=== PATIENT | female | born 1990 | race Caucasian/White ===

== ENCOUNTER 2021-11-20 11:28 | Outpatient (CLI) | payer OTHER, SELFPAY ==
[2021-11-20 12:03] LABS: Basophils Absolute Auto 0.1 K/mm3 (0.0-0.1); Basophils Percent Auto 1.2 % (0.2-1.2); Eosinophils Absolute Auto 0.1 K/mm3 (0-0.3); Eosinophils Percent Auto 1.5 % (0-4.4); Hematocrit 46.8 % (37.0-47.0); Hemoglobin 15.4 g/dL (12.0-15.0); Immature Granulocyte Absolute 0.03 K/mm3 (0.00-0.031); Immature Granulocyte Percent A 0.4 % (0-0.5); Immature Platelet Fraction Pct 20.9 % (0.9-11.2); Lymphocytes Absolute Auto 2.08 K/mm3 (0.9-3.2); Mean Corpuscular HGB Conc 32.9 g/dl (32-36); Mean Corpuscular Hemoglobin 31.2 pg (26-34); Mean Corpuscular Volume 94.9 fl (80-100); Mean Platelet Volume 13.4 fl (7.4-10.4); Monocytes Absolute Auto 0.5 K/mm3 (0.1-0.6); Monocytes Percent Auto 7.3 % (2.6-8.5); Neutrophils Absolute Auto 4.6 K/mm3 (1.3-6.7); Neutrophils Percent Auto 61.6 % (45.5-73.1); Platelet Count Result 151 k/mm3 (150-375); Red Blood Count 4.93 M/mm3 (4.2-5.4); Red Cell Distribution Width 13.3 % (11.5-14.5); White Blood Count 7.4 K/mm3 (4.5-10.0)
== END 2021-11-20 11:29 | disposition home or self-care (01) ==
PROVIDERS: Visit Provider Obstetrics & Gynecology
DX: N81.4 Uterovaginal prolapse, unspecified (principal); Z01.818 Encounter for other preprocedural examination
CPT/HCPCS: 36415; 85025; 85055; 86850; 86900; 86901

== ENCOUNTER 2021-11-27 00:43 | Day surgery (SDC) | payer OTHER, SELFPAY ==
[2021-11-19 13:01] VITALS: BMI 27.4
--- NOTE | 2021-11-19 13:15 | PC.NURSE ---
Report to the Outpatient Waiting Room, entrance under the green pavilion located off [facility], at time 12:00 on date 11/27/21. OR Time: 2:00. - You and your visitor will be asked a series of questions to screen for COVID 19 for your protection. - Only one visitor is allowed at this time. - The patient visitor is requested to leave or wait in car when not with patient. - A mask is required within the hospital. Patients may have clear liquids (water, carbonated beverages, clear teas, apple juice) until 3 hours prior to surgery (11:00) with a maximum of 20 ounces. - No food from midnight until time of surgery Take the following medications with a SIP of water the morning of surgery: N/A Medications to discontinue per physician: N/A Date to take last dose: N/A Please no make-up, nail fijian, hairspray, perfume, deodorant, or body powder the day of surgery. No jewelry (including any body piercings) or valuables the day of surgery, leave them at home. Please take a shower or bath the night before, or the morning of, surgery with an antibacterial soap. Wear comfortable, loose fitting clothing. - Jewelry must be removed prior to entering the operating room. Rings and piercings that are not removed may be cut off. - The hospital will not accept responsibility for valuables. - Please leave all valuables, including medications, at home the day of surgery. If you are going home after surgery, a licensed tanker truck driver must drive you home. - NO public transportation without another adult. - We recommend that an adult stay with you for 24 hours following discharge. - We also recommend that you do not drive, make important decision, drink alcoholic beverages, or take any drugs that were not prescribed by your health care provider for at least 24 hours after your discharge time. Follow any additional instructions given to you from your surgeon. If you or anyone in your household have experienced Covid symptoms in the past week, please notify your surgeon or the nurse liaison at the phone number below for possible testing. Telephone instructions given to PT - TIFFANIE DESAI and asked if any additional questions and then verbalized understanding. Patient advised to call surgeon office or pre surgery nurse liaison [phone] if any additional questions.
--- NOTE | 2021-11-24 17:28 | P.HP_ITS ---
H&P: HPI History of Present Illness Date/Time: 11/24/21 17:28 Chief Complaint: Pelvic pain/dyspareunia/prolapse Narrative: 31-year-old admitted for robotic total vaginal hysterectomy and bilateral salpingectomy secondary to pelvic pain and dyspareunia. She has a 2nd to third- degree prolapse as well risks and benefits reviewed including not exclusive of , aspiration pneumonia, bleeding, transfusion, perforation injury to bowel, bladder, ureters, or other internal organs with need for open laparotomy. She received the [employer]CO[employer] handout entitled hysterectomy as well as the de [place]un handout. She had all questions answered and asked to proceed PMFSH Past Medical History Medical History PIH ( induced hypertension) Family History Family History Father Hypertension Diabetes mellitus Mother Clotting disorder Social History Social History Smoking packs per day: 1 Smoking cigarettes per day: 20.0 Years smoked: 17 Smoking pack-years: 17.00 Smoking status: Current every day smoker Tobacco type: cigarettes Second hand tobacco smoke exposure: No Alcohol intake: never Substance use: never Substance use type: does not use Additional living arrangements comments: CHILDREN Gender identity (if verbalized by the patient): Female Spiritual care concerns: No Meds Home Medications and Allergies Home Medications Medication Instructions Recorded Confirmed Type No Home Medications 11/19/21 11/19/21 History Allergies Allergy/AdvReac Type Severity Reaction Status Date / Time No Known Allergies Allergy Unknown Verified 11/19/21 13:00 Exam Const: General: cooperative and healthy appearing HENMT: Head: normal to inspection Chest: Chest palpation & inspection: normal inspection of the chest Resp: Effort & Inspection: normal respiratory effort Cardio: Rate: regular rate Rhythm: regular rhythm GI: Inspection: normal to inspection : Speculum Exam - Cervix: normal appearance of the cervix and Cervical os closed Bimanual exam- vagina & uterus: enlarged Bimanual Exam- Adnexa, other: normal adnexae Assessment and Plan Assessment and plan (1) Pelvic pain: Code(s): R10.2 - Pelvic and perineal pain Status: Acute (2) Uterine prolapse: Code(s): N81.4 - Uterovaginal prolapse, unspecified Status: Acute (3) Dyspareunia: Status: Acute Plan Robotic total vaginal hysterectomy and bilateral salpingectomy
--- NOTE | 2021-11-26 10:56 | WPDANESEPPF ---
Anes - Initial Pre Proc Eval Procedure: Operation Date: 11/27/21 14:00 Proposed Procedures p Robotic Assisted Total Vaginal Hysterectomy with Bilateral Salpingectomy - Doug Abreu MD Date/Time: 11/26/21 10:56 Surgeon: Doug Abreu MD Pre Op Diagnosis: 2nd-3rd degree uterine prolapse, dyspareunia Patient Data Age: 31 Gender: F Height: 1.57 m Weight: 68.04 kg Allergies Allergy/AdvReac Type Severity Reaction Status Date / Time No Known Allergies Allergy Unknown Verified 11/27/21 11:56 Home Medications Medication Instructions Recorded Confirmed Type hydrocodone 5 mg-acetaminophen 325 1 tablet PO Q4H PRN pain #30 tabs 11/27/21 Rx mg tablet Patient hx anesthesia problems: none Family hx anesthesia problems: none Results Review: All pre-operative results and documents have been reviewed as part of the pre-operative evaluation. [facility]LY [facility] Past Medical History Medical History (Updated 11/26/21 @ 10:56 by Reynaldo Baig MD) Pelvic pain PIH ( induced hypertension) Uterine prolapse Family History Family History Father Hypertension Diabetes mellitus Mother Clotting disorder Social History Social History Smoking packs per day: 1 Smoking cigarettes per day: 20.0 Years smoked: 17 Smoking pack-years: 17.00 Smoking status: Current every day smoker Tobacco type: cigarettes Second hand tobacco smoke exposure: No Alcohol intake: never Substance use: never Substance use type: does not use Living arrangements: with family Additional living arrangements comments: CHILDREN Gender identity (if verbalized by the patient): Female Spiritual care concerns: No Anes - Eval Final PreProcedure Day of Procedure 11/26/21 10:56 Patient weight: overweight Heart: regular rate and rhythm Lungs: clear to auscultation and normal air movement Airway: Mallampati scale class II Neurological: alert and oriented Last oral intake: >/= 8 hours ASA classification: II Emergent: no Anesthetic plan: proceed Anesthesia type and monitoring: general ETT Results Review: All pre-operative results and documents have been reviewed as part of the pre-operative evaluation. Informed Consent: The patient's anesthetic plan and its attendant risks and benefits were discussed with the patient/family/POA. Questions were solicited and answers provided to the satisfaction of the patient/family/POA.
[2021-11-27] VITALS (8 sets, daily range): BP systolic 103–128; BP diastolic 45–90; PULSE 39–77; RESP 14–18; TEMP 36.4–36.7; O2SAT 96–100
--- NOTE | 2021-11-27 07:27 | WPDHPUPDATE1 ---
History and Physical Update Update Date/Time: 11/27/21 07:27 History and Physical has been reviewed, including an updated exam of the patient. There are NO changes in the patient's condition. Risks, benefits, and alternatives have been discussed and questions answered. Patient agrees to proceed with procedure.
[2021-11-27] MEDS: ACETAMINOPHEN 500 MG TABLET 1000 MG PO (12:46)
[2021-11-27] MEDS: LACTATED RINGERS 1,000 ML 30 ML IV CONT ×2 (12:46→15:46)
[2021-11-27] MEDS: KETOROLAC 15 MG/ML VIAL (*BKC) IV PUSH (12:49)
[2021-11-27] MEDS: ceFAZolin 2 GM/D5W 50 ML 2 GM/50 ML BAG IVPB (14:10)
--- NOTE | 2021-11-27 15:15 | W.PM.PROC2 ---
Procedure Note - Detailed Date of Procedure 11/27/21 Pre-op Diagnosis 2nd-3rd degree uterine prolapse, dyspareunia Post-op Diagnosis Same Procedure Performed Robotic total vaginal hysterectomy and bilateral salpingectomy Surgeon Doug Abreu MD Anesthesia General Indications Since 31-year-old female with uterine prolapse pelvic pain Findings 2nd to third-degree prolapse. Normal-appearing ovaries and tubes. Description of Procedure The patient is prepped and draped in the normal sterile fashion placed in the dorsal lithotomy position. Under excellent general trach anesthesia weighted speculum placed in posterior fornix vagina. Anterior lip of the cervix grasped with a single-tooth tenaculum. Uterus sounded to 10cm. Serial dilatation with fragmented dilators performed followed by passes the 8. LIVIA and the 3. 0.5 cold cup. Next the 16 [place] catheter was placed in the bladder and drained of clear urine. The weighted speculum was removed and the gloves were changed. A supraumbilical incision made the Veress needle passed in the abdomen. Abdomen filled with CO2 gas [id number]. The 8mm trocar advanced in the abdomen. Downside visualized no injury seen. Patient placed in Trendelenburg and right left lateral quadrant incisions made. The trocars were in entered and watched under direct visualization assuring no injury. Right upper quadrant incision made the 8mm trocar advanced under direct visualization. The robot was docked. Attention was turned to the student services counselor. Left round ligaments class grasped, burned, cut. A bladder flap was formed by sharply dissecting the peritoneum and reflecting the bladder caudally away from the cervix and uterus to the opposite round ligament which was clamped, burned, cut. Next the left fallopian tube was sharply dissected using monopolar cautery away from the ovarian complex left attached at its uterine origin a qureshi. In like fashion the right fallopian tube was then removed by sharply dissecting with monopolar cautery away from ovarian complex and leaving it attached to the its uterine origin a qureshi. Next the utero-ovarian ligament on the left was skeletonized clamped, burned, cut and brought to the level of previously cut round ligament thus retaining the left ovary. To retain the right ovary, the utero-ovarian ligament on the right was clamped, burned, cut and brought to the level of the previously cut ligament. Next the cardinal broad ligaments on the left were serially skeletonized clamping burning cutting and hugging the cervix and uterus until the uterine vessels could be seen on the left. These were large and tortuous and were individually clamped, burned, cut. In like fashion the cardinal broad ligaments on the right were serially skeletonized clamped, burned, cut and brought down lateral edge of the uterus hugging the cervix until the uterine vessels could be seen on the right. These were individually clamped, burned, cut. At that point excellent blanching the uterus was seen. A colpotomy incision was made in the cervix uterus and tubes removed through the vagina. Blood loss estimated at25cc up to this point. The vagina was closed with continuous running 0V lock from lateral edge to lateral edge back to the midline. Irrigation undertaken to clear and blood loss estimated for twin at25cc for the entire. The robot was undocked. The gas removed from the abdomen. The trocars removed and the incisions closed with 4-0 Monocryl and glue. The instruments removed from the vagina and the patient was awakened. All sponge, needle, instrument counts were correct. There were no immediate complications noted Estimated Blood Loss 25 Drains No Packing No Pathology Yes Complications No immediate complications Condition Stable Disposition PACU
[2021-11-27] MEDS: ONDANSETRON INJ 4 MG/2 ML VIAL IV PUSH (15:44)
[2021-11-27] MEDS: fentaNYL CITRATE INJ (*CRX) 100 MCG/2 ML VIAL 25 MCG IV PUSH ×6 (15:58→16:44)
--- NOTE | 2021-11-27 16:52 | PC.NURSE ---
This patient, Radha Rdz, was received from PACU on 11/27/21 at 1652. Patient/family oriented to unit policies and routines
[2021-11-27] MEDS: DEXTROSE 5%/LACTATED RINGERS 1,000 ML 125 ML IV CONT (17:30)
[2021-11-27] MEDS: HYDROcodone/acetaminophen (*CRX) 10-325 MG TABLET 1 TAB PO ×2 (19:04→23:53)
[2021-11-28 00:25] VITALS: BP 107/63; PULSE 64; RESP 16; TEMP 36.7; O2SAT 97
[2021-11-28 05:00] VITALS: BP 112/63; PULSE 94; RESP 16; TEMP 36.8; O2SAT 95
[2021-11-28] MEDS: HYDROcodone/acetaminophen (*CRX) 10-325 MG TABLET 1 TAB PO (05:28)
[2021-11-28 05:31] LABS: Basophils Percent Auto 0.2 % (0.2-1.2); Hematocrit 42.7 % (37.0-47.0); Hemoglobin 14.4 g/dL (12.0-15.0); Immature Granulocyte Absolute 0.09 K/mm3 (0.00-0.031); Immature Granulocyte Percent A 0.5 % (0-0.5); Immature Platelet Fraction Pct 21.7 % (0.9-11.2); Lymphocytes Absolute Auto 1.49 K/mm3 (0.9-3.2); Lymphocytes Percent Auto 7.6 % (18.3-44.2); Mean Corpuscular HGB Conc 33.7 g/dl (32-36); Mean Corpuscular Hemoglobin 31.2 pg (26-34); Mean Corpuscular Volume 92.4 fl (80-100); Mean Platelet Volume 12.2 fl (7.4-10.4); Monocytes Absolute Auto 1.2 K/mm3 (0.1-0.6); Monocytes Percent Auto 5.9 % (2.6-8.5); Neutrophils Absolute Auto 16.9 K/mm3 (1.3-6.7); Neutrophils Percent Auto 85.8 % (45.5-73.1); Platelet Count Result 133 k/mm3 (150-375); Red Blood Count 4.62 M/mm3 (4.2-5.4); Red Cell Distribution Width 12.7 % (11.5-14.5); White Blood Count 19.7 K/mm3 (4.5-10.0)
[2021-11-28 06:25] VITALS: TEMP 36.8
[2021-11-28 06:47] VITALS: TEMP 36.8
--- NOTE | 2021-11-28 06:49 | P.DS_ITS ---
DS: Admitting Diagnosis Discharge Date 11/28/2021 Admitting Diagnosis pelvic pain/dyspareunia DS: Discharge Diagnosis Discharge Diagnosis (1) Pelvic pain: Code(s): R10.2 - Pelvic and perineal pain Status: Acute (2) Uterine prolapse: Code(s): N81.4 - Uterovaginal prolapse, unspecified Status: Acute (3) Dyspareunia: Status: Acute DS: Summary Hospital Course Reason for hospitalization: patient was admitted for robotic hysterectomy and bilateral salpingectomy Hospital Course: the patient underwent robotic total vaginal hysterectomy and bilateral salpingectomies. The procedure was unremarkable. Her postop course was unremarkable. She remained afebrile. She was up, voiding without difficulty, ambulating, eating regular diet, and generally without complaints. Time Spent with Patient Time attestation: Total time spent providing and/or coordinating discharge services: DS: Data Data Completed and Pending Pending studies at discharge: Pending at discharge 11/27/21 14:59 Surgical [PTH] Routine Labs on day of discharge: Labs from last 24 hours 11/28/21 05:21 WBC 19.7 H RBC 4.62 Hgb 14.4 Hct 42.7 MCV 92.4 MCH 31.2 MCHC 33.7 RDW 12.7 Plt Count 133 L MPV 12.2 H Immature Gran % (Auto) 0.5 Neut % (Auto) 85.8 H Lymph % (Auto) 7.6 L [place] % (Auto) 5.9 Eos % (Auto) 0.0 Baso % (Auto) 0.2 Lymph # (Auto) 1.49 Vermilion # (Auto) 1.2 H Eos # (Auto) 0.0 Baso # (Auto) 0.0 Abs Immat Gran (auto) 0.09 H Absolute Neuts (auto) 16.9 H Absolute Nucleated RBC 0.0 Nucleated RBC % 0.0 % Immature Plt Fraction 21.7 H Discharge Plan Discharge Patient Disposition: Home, Self-Care Stand Alone Forms: General Discharge Instructions Follow-up/Referrals: Doug Avitia MD [Physician] - Discharge Medications: New hydrocodone-acetaminophen 5-325 mg tablet 1 tablet PO Q4H PRN (Reason: pain) Qty: 30 0RF
--- NOTE | 2021-11-28 06:51 | PM.GYNPNOP ---
CLINICAL REVIEWER - A/P Assessment and plan (1) Pelvic pain: Code(s): R10.2 - Pelvic and perineal pain Status: Acute (2) Uterine prolapse: Code(s): N81.4 - Uterovaginal prolapse, unspecified Status: Acute (3) Dyspareunia: Status: Acute Postoperative Procedures: Procedures Operation Date: 11/27/21 14:00 Actual Procedure Side Surgeon p Robotic Assisted Total Vaginal Hysterectomy with Bilateral Salpingectomy Bilateral Doug Arbeu MD Postoperative day: 1 Postoperative status: doing well Postoperative plan: routine post-op care, see orders, ambulate, advance diet and discharge Time Spent With Patient Time: Total time spent is greater than 50% in coordination of care (as documented) at patient's floor/unit and/or counseling patient: Time with patient: less than 15 minutes CLINICAL REVIEWER- PN:Subj Post-Op Subjective Date/time seen: 11/28/21 06:51 Subjective: patient reports feeling better, patient has no complaints, pain is well controlled and patient is tolerating oral intake CLINICAL REVIEWER - PN: Obj Data Vital Signs Vital Signs: Vital Signs - 24 hr 11/27/21 12:15 11/27/21 15:35 11/27/21 15:50 Temperature 98.1 F 97.6 F Pulse Rate 49 L 66 39 L Respiratory Rate 16 16 14 Blood Pressure 109/45 L 126/90 128/79 Pulse Oximetry 100 100 100 Oxygen Delivery Room Air Simple Face Mask Simple Face Mask Oxygen Flow Rate 8 8 11/27/21 16:05 11/27/21 16:20 11/27/21 16:35 Temperature Pulse Rate 53 L 49 L 45 L Respiratory Rate 16 15 16 Blood Pressure 110/81 112/71 112/72 Pulse Oximetry 100 100 98 Oxygen Delivery Simple Face Mask Room Air Room Air Oxygen Flow Rate 8 11/27/21 17:00 11/27/21 20:30 11/27/21 20:30 Temperature 97.6 F 97.9 F Pulse Rate 67 77 77 Respiratory Rate 18 16 16 Blood Pressure 103/64 111/70 Pulse Oximetry 100 96 96 Oxygen Delivery Room Air Oxygen Flow Rate 11/28/21 00:25 11/28/21 05:00 11/28/21 06:25 Temperature 98.1 F 98.3 F 98.3 F Pulse Rate 64 94 Respiratory Rate 16 16 Blood Pressure 107/63 112/63 Pulse Oximetry 97 95 Oxygen Delivery Oxygen Flow Rate 11/28/21 06:47 Temperature 98.3 F Pulse Rate Respiratory Rate Blood Pressure Pulse Oximetry Oxygen Delivery Oxygen Flow Rate Intake/Output Intake/Output: Intake & Output 11/25/21 11/26/21 11/27/21 11/28/21 23:59 23:59 23:59 23:59 Intake Total 2870 200 Output Total 800 Balance 2070 200 Meds/Results Medications: Active Medications Generic Name Dose Route Start Last Admin Trade Name Freq PRN Reason Stop Dose Admin Hydrocodone Bitart/Acetaminophen 1 tab 11/27/21 16:47 Hydrocodone/Acetaminophen (*Crx) 5-325 Mg Tablet PO Q3H PRN Pain Rated 5 or Less Hydrocodone Bitart/Acetaminophen 1 tab 11/27/21 16:47 11/28/21 05:28 Hydrocodone/Acetaminophen (*Crx) 10-325 Mg Tablet PO 1 tab Q3H PRN Administration Pain Rated 6 or Greater Docusate Sodium 100 mg 11/27/21 17:00 11/27/21 17:50 Docusate Sodium 100 Mg Capsule PO Not Given BID CYN Enoxaparin Sodium 40 mg 11/28/21 09:00 Enoxaparin 40 Mg/0.4 Ml Syringe SUB-Q DAILY CYN Dextrose/Lactated Ringer's 1,000 mls @ 125 mls/hr 11/27/21 16:47 11/27/21 17:30 Dextrose 5%/Lactated Ringers IV CONT 125 mls/hr .Q8H CYN Administration Ibuprofen 600 mg 11/27/21 16:47 Ibuprofen 600 Mg Tablet PO Q6H PRN Cramping Ketorolac Tromethamine 30 mg 11/27/21 16:47 Ketorolac 30 Mg/Ml Vial (*Bkc) IV PUSH 12/02/21 16:46 Q6H PRN Pain Rated 4-6 Naloxone HCl 0.1 mg 11/27/21 16:47 Naloxone Hcl 0.4 Mg/Ml Vial IV PUSH Q2M PRN Respiratory rate less than 10 Ondansetron HCl 4 mg 11/27/21 16:47 Ondansetron Inj 4 Mg/2 Ml Vial IV PUSH Q6H PRN Nausea And Vomiting Simethicone 80 mg 11/27/21 16:47 Simethicone 80 Mg Tab.Chew PO Q2H PRN Gas Labs CBC & Chem 7: 11/28/21 05:21 Labs: Laboratory Results
[2021-11-28] MEDS: ENOXAPARIN 40 MG/0.4 ML SYRINGE SUB-Q (07:41)
[2021-11-28] MEDS: IBUPROFEN 600 MG TABLET PO (07:41)
[2021-11-28] MEDS: DOCUSATE SODIUM 100 MG CAPSULE PO (07:41)
[2021-11-28] MEDS: SIMETHICONE 80 MG TAB.CHEW PO (07:41)
[2021-11-28 07:45] VITALS: BP 113/60; PULSE 60; RESP 18; TEMP 36.5; O2SAT 99
[2021-11-28] MEDS: HYDROcodone/acetaminophen (*CRX) 5-325 MG TABLET 1 TAB PO (09:43)
== END 2021-11-28 10:33 | disposition home or self-care (01) ==
LOC: ANHSURGERY 11:40 → ANHOB2 16:49
PROVIDERS: Visit Provider Obstetrics & Gynecology
PROC: (CPT 58552; principal; 2021-11-27 14:00)
DX: N81.3 Complete uterovaginal prolapse (principal); F17.210 Nicotine dependence, cigarettes, uncomplicated; R10.2 Pelvic and perineal pain; N94.10 Unspecified dyspareunia
CPT/HCPCS: 58552; S2900; 36415; 85025; 85055; 86850; 86900; 86901; 88307; 99199; A9270; J0690; J1100; J1170; J1644; J1650; J1885; J2250; J2405; J2704; J2710; J3010; J7120; J7121